=== PATIENT | female | born 1980 | race African-American/Black ===

== ENCOUNTER 2023-01-01 17:25 | Emergency (ER) | payer OTHER ==
[2023-01-01 17:48] VITALS: BP 145/85; PULSE 55; RESP 18; TEMP 98.5; BMI 34.9
[2023-01-01 20:16] LABS: BASO % 0.8 % (0-2.0); HEMATOCRIT 33.3 % (32.4-45.2); HEMOGLOBIN 11.5 GM/dL (10.7-15.3); MCH 24.6 pg (25.7-33.7); MCHC 34.6 g/dl (32.0-36.0); MEAN CELL VOLUME 71.2 fl (80-96); MEAN PLT VOLUME 8.9 fl (7.5-11.1); MONO % 7.1 % (3.8-10.2); NEUT % 57.1 % (42.8-82.8); PLATELET COUNT 275 10^3/uL (134-434); RBC 4.67 M/mm3 (3.60-5.2); RDW 14.4 % (11.6-15.6); WHITE BLOOD COUNT 5.7 K/mm3 (4.0-10.0)
[2023-01-01 20:28] LABS: INR 1.11 (0.83-1.09); PROTHROMBIN TIME (PATIENT) 12.9 SEC (9.7-13.0)
[2023-01-01 20:31] LABS: ACTIVATED PTT 31.9 SECONDS (25.2-36.5)
[2023-01-01 20:35] LABS: ALBUMIN 3.7 g/dl (3.4-5.0); BLOOD UREA NITROGEN 7.9 mg/dL (7-18); CALCIUM 9.2 mg/dL (8.5-10.1)
[2023-01-01 20:39] LABS: CREATININE 1.1 mg/dL (0.55-1.3); TOT PROT 7.9 g/dl (6.4-8.2)
[2023-01-01 20:41] LABS: BILIRUBIN,TOTAL 0.4 mg/dL (0.2-1)
== END 2023-01-02 00:07 | disposition home or self-care (01) ==
LOC: JER 17:25
DX: R07.89 Other chest pain (principal)
CPT/HCPCS: 36415; 71275-TC; 80053; 84484; 84703; 85025; 85379; 85610; 85730; 93005; 93010; 99285-25; Q9967